=== PATIENT | male | born 1970 | race Caucasian/White ===

== ENCOUNTER 2023-09-08 19:35 | Emergency (ER) | payer SELFPAY ==
[~2023-09-08 19:35] MED LIST: CHLO473M3 PO; CLIN-97 PO
== END 2023-09-08 20:03 | disposition left against medical advice (07) ==
LOC: ER 19:37
DX: M79.603 Pain in arm, unspecified (principal); Z53.21 Procedure and treatment not carried out due to patient leaving prior to being seen by health care provider